=== PATIENT | female | born 1955 | race Caucasian/White ===

== ENCOUNTER 2021-08-31 21:17 | Observation (INO) ==
[2021-08-31] MEDS ORDERED: ASPIRIN 325 MG TABLET PO STA (21:32)
[2021-09-01 00:42] LABS: Basophils # 0.1 10*3/uL (0.0-0.2); Basophils % 0.7 % (0.0-0.8); Eosinophils # 0.2 10*3/uL (0.0-0.87); Eosinophils % 2.2 % (0.00-10.9); Hematocrit 45.8 VOL% (35.7-47.0); Hemoglobin 14.7 GM/DL (12.0-16.0); Immature Granulocytes % 0.2 %; Immature Granulocytes Absolute 0.02 #; Lymphocytes # 3.2 10*3/uL (1.4-4.0); Lymphocytes % 37.1 % (21.3-54.2); Mean Corpuscular HGB Conc 32.1 GM/DL (32-36); Mean Corpuscular Volume 92.5 FL (87-102); Mean Platelet Volume 11.3 FL (9.6-12.0); Monocytes % 6.4 % (1.7-12.7); Neutrophils % 53.4 % (38.7-73.9); Platelet Count 246 T/CUMM (130-400); Red Blood Count 4.95 MC/CUMM (3.8-5.5); Red Cell Distribution Width 13.8 % (9.3-17.3); White Blood Count 8.5 T/CUMM (4-12)
[2021-09-01 01:55] LABS: Albumin 3.9 G/DL (3.4-5.0); Bilirubin,Total 0.9 MG/DL (0.20-1.00); Calcium 9.2 MG/DL (8.5-10.1); Osmolality,Calculated 280.5 MOS/KG (273-304); Potassium 3.6 MMOL/L (3.5-5.1); Total Protein 7.8 G/DL (6.4-8.2)
[2021-09-01] MEDS ORDERED: ONDANSETRON 4 MG/2 ML VIAL IV STA (02:43)
[2021-09-01] MEDS ORDERED: MORPHINE 2 MG/1 ML SYRINGE IV STA (02:43)
[2021-09-01] MEDS ORDERED: GLUCAGON 1 MG VIAL IM PRN (04:03)
[2021-09-01] MEDS ORDERED: ONDANSETRON 4 MG/2 ML VIAL IV PRN (04:03)
[2021-09-01] MEDS ORDERED: DEXTROSE 50% 25 GM/50 ML VIAL IV PRN (04:03)
[2021-09-01] MEDS ORDERED: MORPHINE 2 MG/1 ML SYRINGE IV PRN (04:03)
[2021-09-01 04:47] LABS: Thyroid Stimulating Hormone 1.74 uIU/ml (0.358-3.74); VLDL Cholesterol 12.6 MG/DL
[2021-09-01] MEDS ORDERED: hydrALAZINE 20 MG/1 ML VIAL IV PRN (04:47)
[2021-09-01] MEDS: ENOXAPARIN 100 MG/ML SYRINGE SUBCUT SCH ×2 (05:18→20:15)
[2021-09-01] MEDS: SODIUM CHLORIDE 0.9% 1,000 ML IV SCH ×2 (05:56→16:11)
[2021-09-01] MEDS: ASPIRIN 325 MG TABLET PO SCH (09:43)
[2021-09-01] MEDS: PANTOPRAZOLE 40 MG TABLET PO SCH (09:43)
[2021-09-01] MEDS: CLORAZEPATE 3.75 MG TABLET PO SCH ×2 (09:59→20:15)
[2021-09-01] MEDS ORDERED: ALUM/MAG/SIMETH/LIDO VISC 1:1 30 ML BOTTLE PO ONE (12:55)
[2021-09-01] MEDS ORDERED: POTASSIUM CHLORIDE RIDER 10 MEQ/100 ML PREMIX IV PRN (15:16)
[2021-09-01] MEDS ORDERED: MAGNESIUM SULF RIDER 2 GM/50 ML PREMIX IV PRN (15:16)
[2021-09-01] MEDS ORDERED: DIAZEPAM 5 MG TABLET PO ONE (15:16)
[2021-09-01] MEDS ORDERED: diphenhydrAMINE CAP 50 MG CAPSULE PO ONE (15:16)
[2021-09-01] MEDS: GABAPENTIN 100 MG CAPSULE PO SCH ×2 (17:49→20:15)
[2021-09-01] MEDS ORDERED: fentaNYL 100 MCG/2 ML VIAL ONE (17:53)
[2021-09-01] MEDS ORDERED: MIDAZOLAM 2 MG/2 ML VIAL ONE (17:53)
[2021-09-01] MEDS ORDERED: ROSUVASTATIN 10 MG TABLET PO SCH (21:00)
[2021-09-01] MEDS ORDERED: ATORVASTATIN 40 MG TABLET PO SCH (21:00)
[2021-09-01] MEDS: ACETAMINOPHEN 325 MG TABLET PO PRN (22:17)
[2021-09-02 05:12] LABS: Basophils % 0.5 % (0.0-0.8); Eosinophils # 0.2 10*3/uL (0.0-0.87); Eosinophils % 2.9 % (0.00-10.9); Hemoglobin 12.9 GM/DL (12.0-16.0); Immature Granulocytes % 0.3 %; Immature Granulocytes Absolute 0.02 #; Lymphocytes % 41.5 % (21.3-54.2); Mean Corpuscular HGB Conc 32.3 GM/DL (32-36); Mean Corpuscular Volume 93.7 FL (87-102); Monocytes % 6.3 % (1.7-12.7); Neutrophils % 48.5 % (38.7-73.9); Platelet Count 205 T/CUMM (130-400); Red Blood Count 4.27 MC/CUMM (3.8-5.5); Red Cell Distribution Width 13.5 % (9.3-17.3); White Blood Count 7.3 T/CUMM (4-12)
[2021-09-02 05:39] LABS: Calcium 8.6 MG/DL (8.5-10.1); Osmolality,Calculated 279.4 MOS/KG (273-304); Potassium 3.7 MMOL/L (3.5-5.1)
[2021-09-02] MEDS: ENOXAPARIN 100 MG/ML SYRINGE SUBCUT SCH (07:07)
[2021-09-02] MEDS: CLORAZEPATE 3.75 MG TABLET PO SCH (09:05)
[2021-09-02] MEDS: PANTOPRAZOLE 40 MG TABLET PO SCH (09:05)
[2021-09-02] MEDS: GABAPENTIN 100 MG CAPSULE PO SCH (09:05)
[2021-09-02] MEDS: ASPIRIN 325 MG TABLET PO SCH (09:06)
[2021-09-02] MEDS: ACETAMINOPHEN 325 MG TABLET PO PRN (09:06)
[2021-09-02 11:38] VITALS: BP 120/68
== END 2021-09-02 13:07 | disposition home or self-care (01) ==
LOC: N.EDINP 21:17 → N.ED 21:17 → N.EDINP 09-01 14:25 → N.TELES 09-01 14:45
PROVIDERS: ADMIT Internal Medicine; ATTEND Internal Medicine
PROC: CLCCHCL (ICD-10-PCS; 2021-09-01 16:15)

== ENCOUNTER 2021-10-07 14:43 | Observation (INO) ==
[2021-10-07 17:36] LABS: Basophils # 0.1 10*3/uL (0.0-0.2); Basophils % 0.6 % (0.0-0.8); Eosinophils # 0.3 10*3/uL (0.0-0.87); Eosinophils % 3.9 % (0.00-10.9); Hemoglobin 13.5 GM/DL (12.0-16.0); Immature Granulocytes % 0.3 %; Immature Granulocytes Absolute 0.02 #; Lymphocytes # 2.8 10*3/uL (1.4-4.0); Lymphocytes % 34.8 % (21.3-54.2); Mean Corpuscular HGB Conc 31.4 GM/DL (32-36); Mean Corpuscular Volume 92.5 FL (87-102); Mean Platelet Volume 11.2 FL (9.6-12.0); Monocytes % 5.4 % (1.7-12.7); Platelet Count 211 T/CUMM (130-400); Red Blood Count 4.65 MC/CUMM (3.8-5.5); Red Cell Distribution Width 13.3 % (9.3-17.3)
[2021-10-07 18:04] LABS: Bilirubin,Total 0.8 MG/DL (0.20-1.00); Calcium 9.2 MG/DL (8.5-10.1); Osmolality,Calculated 282.3 MOS/KG (273-304); Total Protein 7.5 G/DL (6.4-8.2)
[2021-10-07] MEDS ORDERED: ONDANSETRON 4 MG/2 ML VIAL IV PRN (20:21)
[2021-10-07] MEDS ORDERED: ACETAMINOPHEN 325 MG TABLET PO PRN (20:21)
[2021-10-07] MEDS ORDERED: GLUCAGON 1 MG VIAL IM PRN (20:21)
[2021-10-07] MEDS ORDERED: ZALEPLON 5 MG CAPSULE PO PRN (20:21)
[2021-10-07] MEDS ORDERED: DEXTROSE 50% 25 GM/50 ML SYRINGE IV PRN (20:26)
[2021-10-07] MEDS ORDERED: CLORAZEPATE 3.75 MG TABLET PO PRN (20:26)
[2021-10-07] MEDS ORDERED: NON-FORMULARY MEDICATION (Aspirin-Acetaminophen-Caffeine [Excedrin Migraine] 250-250-65 mg PO PRN (20:26)
[2021-10-07] MEDS ORDERED: SERTRALINE 25 MG TABLET PO SCH (21:00)
[2021-10-07] MEDS ORDERED: ENOXAPARIN 40 MG/0.4 ML SYRINGE SUBCUT SCH (21:00)
[2021-10-07 22:06] LABS: Thyroid Stimulating Hormone 1.75 uIU/ml (0.358-3.74)
[2021-10-08 02:01] LABS: Bilirubin,Urine Negative (Negative); Blood, Urine Negative (Negative); Glucose,Urine (UA) Negative (Negative); Ketones,Urine Negative (Negative); Mucus,Urine Occasional /LPF (Occasional); Nitrite,Urine Negative (Negative); Protein,Urine Negative; RBC,Urine 4 /HPF (0-4); Squamous Epithelial Cell,Urine Occasional /HPF (0-10); Transitional Epi Cells,Urine Occasional /HPF (<1); Urine Appearance CLEAR (Clear); Urine Color Yellow (Yellow); Urine Specific Gravity 1.017 (1.001-1.035); Urine Urobilinogen < 2.0 EU/DL (0.2-1.0)
[2021-10-08 07:21] LABS: Basophils # 0.1 10*3/uL (0.0-0.2); Basophils % 0.9 % (0.0-0.8); Eosinophils # 0.3 10*3/uL (0.0-0.87); Eosinophils % 4.2 % (0.00-10.9); Hematocrit 41.5 VOL% (35.7-47.0); Hemoglobin 13.1 GM/DL (12.0-16.0); Immature Granulocytes % 0.2 %; Immature Granulocytes Absolute 0.01 #; Lymphocytes # 2.5 10*3/uL (1.4-4.0); Lymphocytes % 38.5 % (21.3-54.2); Mean Corpuscular HGB Conc 31.6 GM/DL (32-36); Mean Corpuscular Volume 92.8 FL (87-102); Mean Platelet Volume 10.6 FL (9.6-12.0); Monocytes % 6.6 % (1.7-12.7); Neutrophils % 49.6 % (38.7-73.9); Platelet Count 190 T/CUMM (130-400); Red Blood Count 4.47 MC/CUMM (3.8-5.5); Red Cell Distribution Width 13.2 % (9.3-17.3); White Blood Count 6.5 T/CUMM (4-12)
[2021-10-08 08:03] LABS: Albumin 3.4 G/DL (3.4-5.0); Bilirubin,Total 1.6 MG/DL (0.20-1.00); Calcium 9.1 MG/DL (8.5-10.1); Potassium 4.3 MMOL/L (3.5-5.1); Risk Ratio 4.18; Total Protein 6.6 G/DL (6.4-8.2); VLDL Cholesterol 19.4 MG/DL
[2021-10-08] MEDS ORDERED: AZITHROMYCIN 250 MG TABLET PO SCH (09:00)
[2021-10-08] MEDS ORDERED: cefTRIAXone 1,000 MG in SODIUM CHLORIDE 0.9% 100 ML IV SCH (09:00)
[2021-10-08] MEDS ORDERED: ASPIRIN EC 81 MG TABLET PO SCH (09:00)
[2021-10-08] MEDS ORDERED: PANTOPRAZOLE 40 MG TABLET PO SCH (09:00)
[2021-10-08 12:38] VITALS: BP 120/65
[2021-10-08] MEDS ORDERED: LORazepam 1 MG TABLET PO ONE (12:47)
[2021-10-08] MEDS ORDERED: ROSUVASTATIN 10 MG TABLET PO SCH (21:00)
== END 2021-10-08 16:08 | disposition home or self-care (01) ==
LOC: N.EDINP 14:43 → N.ED 14:43 → N.TELEN 22:06
PROVIDERS: ADMIT Internal Medicine; ATTEND Internal Medicine